=== PATIENT | female | born 1990 | race Caucasian/White ===

== ENCOUNTER 2019-07-23 10:41 | Emergency (ER) | payer SELFPAY ==
[2019-07-23 11:08] VITALS: BP 102/53
--- NOTE | 2019-07-23 11:33 | ER Document Report ---
HPI - HPI Patient complains to provider of: toothache Time Seen by Provider: 07/23/19 11:13 Pain Level: 5 Context: Healthy 28-year-old smoker presents to the emergency department with chief complaint of a toothache since 2 AM this morning of her lower left tooth. Patient thinks that her wisdom teeth are becoming impacted and she is never had them removed. Patient is able to open up her mouth and denies trismus, denies fevers or chills, denies purulent discharge, denies any airway obstruction or difficulty breathing. - CONSTITUTIONAL Constitutional: DENIES: Fever, Chills - REPRODUCTIVE Reproductive: DENIES: : Past Medical History - Social History Smoking Status: Current Every Day Smoker Chew tobacco use (# tins/day): No Frequency of alcohol use: None Drug Abuse: None Family History: None Patient has suicidal ideation: Yes Patient has homicidal ideation: No Renal/ Medical History: Denies: Hx Peritoneal Dialysis Vertical Provider Document - CONSTITUTIONAL Notes: PHYSICAL EXAMINATION: Reviewed vital signs and charting by RN GENERAL: Alert, interacts well. No acute distress. HEAD: Normocephalic, atraumatic. EYES: Pupils equal and round. Extraocular movements intact. ENT: Oral mucosa moist, tongue midline. Swelling of the gingiva around the #17 tooth, filling in place, no fracture seen, no evidence of Impaction of wisdom tooth in that area NECK: Full range of motion. Trachea midline. LUNGS: Clear to auscultation bilaterally, no wheezes, rales, or rhonchi. No respiratory distress. HEART: Regular rate and rhythm. No murmur ABDOMEN: soft, non-tender. No distention. Bowel sounds present EXTREMITIES: Moves all 4 extremities spontaneously. No edema, No cyanosis. PSYCH: Normal affect, normal mood. SKIN: Warm, dry, normal turgor. No rashes or lesions noted. - INFECTION CONTROL TRAVEL OUTSIDE OF THE [place] IN LAST 30 DAYS: No Course - Re-evaluation Re-evalutation: 07/23/19 11:32 Presentation is most consistent with likely an infected tooth. Airway is patent. Vitals within normal limits. Patient is able swallow without any difficulty. There is no significant facial swelling. No evidence of Leonel angina, apical abscess, or airway obstruction. Patient will be started on antibiotics. I've instructed to follow-up with dentistry as earliest ability for definitive management. At this time will discharge with return precautions and follow-up recommendations. Verbal discharge instructions given a the bedside and opportunity for questions given. Medication warnings reviewed. Patient is in agreement with this plan and has verbalized understanding of return precautions and the need for primary care follow-up in the next 24-72 hours. - Vital Signs Vital signs: Temp Pulse Resp BP Pulse Ox 98.5 F 75 16 102/53 L 96 07/23/19 11:05 07/23/19 11:05 07/23/19 11:05 07/23/19 11:05 07/23/19 11:05 Discharge - Discharge Clinical Impression: Pain, dental Condition: Good Disposition: HOME, SELF-CARE Additional Instructions: You have been seen for dental pain. I have started you on antibiotics to help with some of the swelling of your gingiva so please take the penicillin as pr escribed. It is very important that you follow-up with a dentist for definitive care. Please return if you develop fever greater than 101, swelling in your face, vomiting, difficulty breathing or swallowing, or any other symptoms that are concerning to you. For pain you should take ibuprofen 600 mg every 6 hours as needed. Referrals: LOCALMD,NO [NO LOCAL MD] - Follow up as needed
[2019-07-23] MEDS ORDERED: PENICILLIN V POTASSIUM 500 MG TABLET PO ONE (11:34)
[2019-07-23] MEDS ORDERED: LIDOCAINE 2% VISCOUS SOLN 20 ML UDCUP PO ONE (11:34)
== END 2019-07-23 12:41 | disposition home or self-care (01) ==
LOC: ER 10:41
DX: K08.89 Other specified disorders of teeth and supporting structures (principal); F17.200 Nicotine dependence, unspecified, uncomplicated
CPT/HCPCS: 99282